=== PATIENT | female | born 1950 | race Caucasian/White ===

== ENCOUNTER 2020-02-18 15:42 | Emergency (ER) | payer OTHER, SELFPAY ==
[2020-02-18 15:58] VITALS: BP 141/63; PULSE 85; RESP 16; TEMP 36.8; O2SAT 98
--- NOTE | 2020-02-18 16:14 | ED.SKABFB ---
HPI - Skin/Abscess/Foreign Bdy General Chief complaint: Skin/Abscess/Foreign Body Stated complaint: poison alondra rash Time Seen by Provider: 02/18/20 16:14 Source: patient and RN notes reviewed Mode of arrival: ambulatory Limitations: no limitations History of Present Illness HPI narrative: 69 year old female who presents to [facility] care with complaints of rash to right lower arm which started 8 days ago which has spread to her left lower arm, left abdomen and left neck which is very itchy. Patient states that rash has had small red raised areas size of dots to irregular raised area up to 0.5cm diameter and some vesicles. Patient states that she had been pulling weeds out in her yard but states not sure what she was exposed to. Patient denies any new medications, food, laundry or bath soaps or any new lotions or shampoo.Patient states that she has been applying hydrocortisone ointment to rash and has taken Bemadryl complaint: rash Onset (ago): day(s) (8) Location: neck (left), chest (left abdomen), LUE and RUE Severity: mild Quality: pruritic Pain Consistency: other (no pain) Relieving factors: none Context: other (pulling weeds) Associated symptoms: itching Treatments prior to arrival: OTC topical medication and Benadryl Related Data Home Medications Medication Instructions Recorded Confirmed Vesicare 02/18/20 aliskiren mg 02/18/20 colesevelam mg 02/18/20 cyanocobalamin (vitamin B-12) 02/18/20 ergocalciferol (vitamin D2) 02/18/20 fluoxetine mg 02/18/20 folic acid 02/18/20 levothyroxine 02/18/20 loratadine 02/18/20 mesalamine PO 02/18/20 trazodone 02/18/20 Allergies Allergy/AdvReac Type Severity Reaction Status Date / Time Sulfa (Sulfonamide Allergy Rash Verified 02/18/20 16:27 Antibiotics) clarithromycin [From Biaxin] AdvReac Nausea Verified 02/18/20 16:26 Review of Systems Review of Systems: Narrative: CONSTITUTIONAL: Denies fever, chills, or sweats. EYES: Denies visual changes, redness, or discharge. ENT: Denies rhinorrhea, congestion, sore throat, or otalgia. CARDIOVASCULAR: Denies chest pain, palpitations, or edema. RESPIRATORY: Denies cough or dyspnea. GASTROINTESTINAL: Denies abdominal pain, nausea, vomiting, or diarrhea. GENITOURINARY: Denies dysuria or hematuria. SKIN: Positive for rash or itching. arms, left neck and left abdomen MUSCULOSKELETAL: Denies back pain, joint pain, or myalgia. NEUROLOGIC: Denies headache, numbness, or weakness. PSYCHIATRIC: Denies anxiety or depression. All systems reviewed & are unremarkable except as noted in HPI and below PMFSH Past Medical History Medical History (Updated 02/19/20 @ 00:00 by Tamela Daemon) Anemia Crohn's disease Hypertension Hypothyroid Social History Social History (Updated 02/18/20 @ 16:53 by Rylie Garcia NP) Smoking status: Never smoker Living arrangements: with family Occupation/Education: retired Additional occupation/education comments: Nurse Gender identity (if verbalized by the patient): Female Comments At time of signature, agree with nursing past medical, surgical, social history. There is no relevant family history pertinent to the presenting complaint Exam Narrative: Exam Narrative: GENERAL: Well-appearing, well-nourished, and in no acute distress. HEAD: Normocephalic, atraumatic. EYES: PERRLA and EOMI. ENT: Nares clear, no rhinorrhea or epistaxis. Mucous membranes moist. NECK: Supple.no lymphadenopathy CHEST: Clear to auscultation. No respiratory distress.SPO2 98% on room air HEART: Regular rate and rhythm. No murmur heard. Normal peripheral pulses. ABDOMEN: Soft, nontender, nondistended, normal active bowel sounds. EXTREMITIES: Normal range of motion. No edema. SKIN: Warm, dry, positive for red raised rash, irregular in pattern with some vesicles noted to right arm.Rash present to bilateral forearms, left abdomen, and left neck which is very itchy. NEURO: No focal deficits. Alert and
== END 2020-02-18 16:35 | disposition home or self-care (01) ==
PROVIDERS: Emergency Provider Registered Nurse; PCP Internal Medicine Endocrinology, Diabetes & Metabolism
DX: L25.9 Unspecified contact dermatitis, unspecified cause (principal); K50.90 Crohn's disease, unspecified, without complications; I10 Essential (primary) hypertension; E03.9 Hypothyroidism, unspecified
CPT/HCPCS: 99213; G0463